=== PATIENT | female | born 1960 | race Caucasian/White ===

== ENCOUNTER 2019-03-05 01:16 | Inpatient (IN) ==
[2019-03-05] MEDS ORDERED: ONDANSETRON 4 MG/2 ML VIAL IV STA (01:47)
[2019-03-05] MEDS ORDERED: MORPHINE 4 MG/1 ML VIAL IV STA (01:47)
[2019-03-05] MEDS ORDERED: SODIUM CHLORIDE 0.9% 1,000 ML IV STA (01:47)
[2019-03-05] MEDS ORDERED: PANTOPRAZOLE INJ 80 MG in SODIUM CHLORIDE 0.9% 100 ML IV ONE (01:48)
[2019-03-05 02:02] LABS: Calcium 9.7 MG/DL (8.5-10.1); Osmolality,Calculated 283.4 MOS/KG (273-304)
[2019-03-05 02:04] LABS: Basophils % 0.2 % (0.0-0.8); Hematocrit 41.3 VOL% (35.7-47.0); Hemoglobin 14.1 GM/DL (12.0-16.0); Immature Granulocytes % 0.5 %; Immature Granulocytes Absolute 0.09 #; Lymphocytes # 1.4 10*3/uL (1.4-4.0); Lymphocytes % 8.4 % (21.3-54.2); Mean Corpuscular HGB Conc 34.1 GM/DL (32-36); Mean Platelet Volume 10.3 FL (9.6-12.0); Monocytes % 3.4 % (1.7-12.7); Neutrophils % 87.5 % (38.7-73.9); Platelet Count 521 T/CUMM (130-400); Red Blood Count 4.59 MC/CUMM (3.8-5.5); Red Cell Distribution Width 12.4 % (9.3-17.3); White Blood Count 16.5 T/CUMM (4-12)
[2019-03-05] MEDS ORDERED: PROMETHAZINE 25 MG/1 ML VIAL ONE (03:41)
[2019-03-05] MEDS ORDERED: PROMETHAZINE INJ 25 MG in SODIUM CHLORIDE 0.9% 50 ML IV STA (03:50)
[2019-03-05] MEDS: PANTOPRAZOLE INJ 200 MG in SODIUM CHLORIDE 0.9% 250 ML IV SCH (04:17)
[2019-03-05] MEDS ORDERED: ACETAMINOPHEN 325 MG TABLET PO PRN (05:03)
[2019-03-05] MEDS: SODIUM CHLORIDE 0.9% 1,000 ML IV SCH ×2 (05:24→16:31)
[2019-03-05 06:17] LABS: Hematocrit 43.8 VOL% (35.7-47.0); Hemoglobin 14.4 GM/DL (12.0-16.0)
[2019-03-05 06:21] LABS: PT Patient Result 11.1 SECS (9.6-12.2)
[2019-03-05] MEDS: ONDANSETRON 4 MG/2 ML VIAL IV PRN ×2 (06:31→21:04)
[2019-03-05] MEDS ORDERED: LABETALOL 20 MG/4 ML SYRINGE IV ONE (08:45)
[2019-03-05] MEDS ORDERED: LABETALOL 20 MG/4 ML SYRINGE IV PRN (08:46)
[2019-03-05] MEDS: amLODIPine 10 MG TABLET PO SCH (10:00)
[2019-03-05] MEDS: carvediloL 12.5 MG TABLET PO SCH ×2 (10:00→21:02)
[2019-03-05 10:56] LABS: Hematocrit 42.3 VOL% (35.7-47.0); Hemoglobin 13.9 GM/DL (12.0-16.0)
[2019-03-05] MEDS: PROMETHAZINE INJ 25 MG in SODIUM CHLORIDE 0.9% 50 ML IV PRN ×2 (10:57→16:28)
[2019-03-05 12:14] LABS: Apearance,Urine Slightly Hazy (Clear); Bilirubin,Urine Negative (Negative); Blood, Urine Negative (Negative); Glucose,Urine (UA) Negative (Negative); Ketones,Urine Negative (Negative); Mucus,Urine Occasional /LPF (Occasional); Nitrite,Urine Negative (Negative); Protein,Urine Negative; Squamous Epithelial Cell,Urine Occasional /HPF (0-10); Urine Color Yellow (Yellow); Urine Specific Gravity 1.011 (1.001-1.035); Urine Urobilinogen < 2.0 EU/DL (0.2-1.0); WBC,Urine <1 /HPF (0-6)
[2019-03-05 17:26] LABS: Hemoglobin 13.1 GM/DL (12.0-16.0)
[2019-03-06 00:44] LABS: Hematocrit 38.5 VOL% (35.7-47.0); Hemoglobin 12.6 GM/DL (12.0-16.0)
[2019-03-06 04:35] LABS: Basophils % 0.2 % (0.0-0.8); Hematocrit 42.2 VOL% (35.7-47.0); Hemoglobin 13.6 GM/DL (12.0-16.0); Immature Granulocytes % 0.5 %; Immature Granulocytes Absolute 0.07 #; Lymphocytes # 2.4 10*3/uL (1.4-4.0); Lymphocytes % 17.7 % (21.3-54.2); Mean Corpuscular HGB Conc 32.2 GM/DL (32-36); Mean Corpuscular Volume 93.6 FL (87-102); Mean Platelet Volume 9.8 FL (9.6-12.0); Neutrophils % 75.6 % (38.7-73.9); Platelet Count 450 T/CUMM (130-400); Red Blood Count 4.51 MC/CUMM (3.8-5.5); Red Cell Distribution Width 12.6 % (9.3-17.3); White Blood Count 13.7 T/CUMM (4-12)
[2019-03-06 04:58] LABS: Osmolality,Calculated 281.1 MOS/KG (273-304)
[2019-03-06] MEDS: ONDANSETRON 4 MG/2 ML VIAL IV PRN ×2 (05:45→07:53)
[2019-03-06] MEDS ORDERED: ONDANSETRON 4 MG/2 ML VIAL ONE (07:51)
[2019-03-06] MEDS ORDERED: PROPOFOL 200 MG/20 ML VIAL IV ONE (09:00)
[2019-03-06] MEDS ORDERED: LIDOCAINE 2% 5 ML VIAL ONE (09:00)
[2019-03-06] MEDS: carvediloL 12.5 MG TABLET PO SCH ×2 (09:29→21:32)
[2019-03-06] MEDS: amLODIPine 10 MG TABLET PO SCH (09:29)
[2019-03-06] MEDS: PANTOPRAZOLE INJ 200 MG in SODIUM CHLORIDE 0.9% 250 ML IV SCH (09:31)
[2019-03-06] MEDS: SODIUM CHLORIDE 0.9% 1,000 ML IV SCH ×3 (09:31→18:11)
[2019-03-06] MEDS ORDERED: PROMETHAZINE INJ 25 MG in SODIUM CHLORIDE 0.9% 50 ML IV PRN (09:37)
[2019-03-06] MEDS ORDERED: SCOPOLAMINE 1.5 MG PATCH TRANSDERM SCH (11:00)
[2019-03-06] MEDS: PROCHLORPERAZINE 10 MG TABLET PO SCH ×2 (14:09→21:32)
[2019-03-06] MEDS ORDERED: PROMETHAZINE 25 MG/1 ML VIAL IM PRN (14:11)
[2019-03-06] MEDS: PANTOPRAZOLE 40 MG TABLET PO SCH (21:32)
[2019-03-07] MEDS: SODIUM CHLORIDE 0.9% 1,000 ML IV SCH (02:37)
[2019-03-07 07:15] VITALS: BP 112/70
[2019-03-07] MEDS: PANTOPRAZOLE 40 MG TABLET PO SCH (09:45)
[2019-03-07] MEDS: carvediloL 12.5 MG TABLET PO SCH (09:45)
[2019-03-07] MEDS: PROCHLORPERAZINE 10 MG TABLET PO SCH (09:45)
[2019-03-07] MEDS: amLODIPine 10 MG TABLET PO SCH (09:45)
[2019-03-07] MEDS ORDERED: PROCHLORPERAZINE 10 MG TABLET PO PRN (10:24)
[2019-03-07] MEDS ORDERED: DILTIAZEM CD 120 MG CAPSULE PO SCH (21:00)
== END 2019-03-07 11:44 | disposition home or self-care (01) | DRG 381 ==
LOC: EDUNIT# → N.ED 01:16 → N.EDINP 03:48 → N.5E 04:19
PROVIDERS: ADMIT Hospitalist; ATTEND Hospitalist